=== PATIENT | female | born 1995 | race Caucasian/White ===

== ENCOUNTER 2016-10-18 15:00 | Inpatient (IN) | payer OTHER ==
--- NOTE | ~2016-10-18 | PN ---
Unit #: [id number] #: [id number] Patient: CLARISA COLLINS [id number] [facility] [address] [place] [address] [id number] I MR#: [id number] NAME: CLARISA COLLINS. ROOM: P123 Age: 21 Sex: F Admission Date: 10/19/2016 : 1995 Attending Physician: Arsalan Nicholas M.D. Admitting Physician: Arsalan Nicholas M.D. Primary Care Physician: Primary Care Physician Erika LOPEZ PROGRESS NOTES DATE October 28, 2016 DISCUSSION Ms. Nazario is a 21-year-old white female, who was seen today and chart was reviewed and the case was discussed with the staff. She has been anxious, withdrawn, and rather seclusive to herself. Meanwhile, she has been cooperative with the treatment recommendations and she has been taking the medications and tolerating them fairly well. MENTAL STATUS EXAMINATION Young white female, who was casually dressed with fair personal hygiene and appears to be in no acute distress or discomfort. She was awake and alert with impaired attention and concentration. Her mood is anxious with a congruent affect. The patient denies any suicidal or homicidal ideations. Her thought processes are disorganized with some looseness of associations, paranoid ideations. Her insight and judgment remain significantly impaired. The patient had another violent outburst last night with acute psychosis and agitation and some violent behavior, and was put in seclusion; however, she was banging her head against the wall and running through the halls and extremely out if and heart rate and blood pressure and an intramuscular injection of Ativan was given, and she was placed on one-to-one precaution for safety purposes. TREATMENT PLAN I will recommend adjusting her medications and we will monitor her response. Dictated by... Jalil Botello/hay TD: 10/28/2016 11:50 JOB #: [id number] Unit #: [id number] #: [id number] Patient: CLARISA COLLINS PEAANA PROGRESS NOTES Page 1 of 1 X CristopherArsalan Choe MD X PROGRESS NOTE
--- NOTE | ~2016-10-18 | PN ---
Unit #: [id number] #: [id number] Patient: CLARISA COLLINS [id number] [facility] [address] [place] [address] [id number] MR#: [id number] NAME: CLARISA COLLINS. ROOM: P123 Age: 21 Sex: F Admission Date: 10/19/2016 : 1995 Attending Physician: Arsalan Nicholas M.D. Admitting Physician: Arsalan Nicholas M.D. Primary Care Physician: Primary Care Physician Erika LOPEZ PROGRESS NOTES DATE October 31, 2016 DISCUSSION Ms. Collins is a 21-year-old white female, who was seen today and chart was reviewed and the case was discussed with the staff. She appears to be doing much better and has been showing significant complaining, confusion, and psychosis, and no agitation or aggression or self-harming behavior has been reported. She was taken off of the one-to-one level of precaution yesterday and so far she has not shown any decompensation and social insurance specialist has been directed to stop working on discharge planning. MENTAL STATUS EXAMINATION Young white female, who was casually dressed with fair personal hygiene and appears to be in no acute distress or discomfort. The patient was awake and alert on interaction with intact orientation. Her mood is anxious with a congruent affect. The patient denies any suicidal or homicidal ideations. Her insight and judgment remain slightly impaired. TREATMENT PLAN 1. We will continue her on her current medications and treatment protocol, and will monitor her response to the medications, and make further adjustments as needed. 2. We will continue to followup. Dictated by... Jalil Botello/hay TD: 10/31/2016 12:19 JOB #: [id number] Unit #: [id number] #: [id number] Patient: CLARISA COLLINS JESSICA PROGRESS NOTES Page 1 of 1 X Arsalan Nicholas MD PROGRESS NOTE
--- NOTE | ~2016-10-18 | PN ---
Unit #: [id number] #: [id number] Patient: CLARISA COLLINS [id number] [facility] [address] [place] [address] [id number] MR#: [id number] NAME: CLARISA COLLINS. ROOM: P123 Age: 21 Sex: F Admission Date: 10/19/2016 : 1995 Attending Physician: Arsalan Nicholas M.D. Admitting Physician: Arsalan Nicholas M.D. Primary Care Physician: Primary Care Physician Erika LAMBERT NOTES DATE OF SERVICE: 10/29/2016 SUBJECTIVE Ms. Collins is a 21-year-old white female, who was seen today and chart was reviewed, and case was discussed with the staff. She has been anxious, withdrawn, agitated, irritable and has not been doing good and once again had very rough evening, has been on one-to-one, but apparently she broke out of her one-to-one staff and started running down the hallway and going at the door and bumped straight into the door without putting the hand out. She then started running again and fell down and scraped her knees and tore her paper gowns and has been seen to be exhibiting some increasing anxiety, agitation, psychosis, with bizarre behavior and has been needing p.r.n. medications to cut down and has not been doing good and when approached, once again she was on one-to-one, but was seen to be lying flat in her bed with poor ability to make eye contact or carry on any meaningful conversation and was exhibiting bizarre behavior, and as such, remains a significant threat to herself. We will maintain her on current level of precautions. We will monitor her medications and adjust further and continue to monitor response. Dictated by... Jalil Botello/akila TD: 10/30/2016 00:18 JOB #: [id number] JESSICA LAMBERT NOTES Page 1 of 1 X Arsalan Nicholas MD PROGRESS NOTE
--- NOTE | ~2016-10-18 | PN ---
Unit #: [id number] #: [id number] Patient: CLARISA COLLINS [id number] [facility] [address] [place] [address] [id number] I MR#: [id number] NAME: CLARISA COLLINS. ROOM: P123 Age: 21 Sex: F Admission Date: 10/19/2016 : 1995 Attending Physician: Arsalan Nicholas M.D. Admitting Physician: Arsalan Nicholas M.D. Primary Care Physician: Primary Care Physician Erika LOPEZ PROGRESS NOTES DATE 10/22/2016 DISCUSSION Mr. Collins is a 21-year-old white female who was seen today and chart was reviewed and case was discussed with the staff. She has been anxious, withdrawn and rather seclusive to herself. Meanwhile, she has been cooperative with treatment recommendations and has been taking medications and tolerating them fairly well with no reported side effects. MENTAL STATUS EXAMINATION Young white female who was casually dressed with fair personal hygiene and appears to be in no acute distress or discomfort. She was awake and alert with impaired attention and concentration. Her mood was anxious and depressed with blunted affect. Her speech is slow and restricted in content. Her thought processes were disorganized with some looseness of association, thought blocking and paranoid ideations. Her insight and judgement remains significantly impaired. TREATMENT PLAN 1. Will continue on current treatment protocol. Will monitor her response and make further adjustments as needed. 2. Will continue to follow up. Dictated by... Jalil Botello/ascencion TD: 10/23/2016 17:51 JOB #: [id number] Unit #: [id number] #: [id number] Patient: CLARISA COLLINS JESSICA PROGRESS NOTES Page 1 of 1 X Arsalan Nicholas MD PROGRESS NOTE
--- NOTE | ~2016-10-18 | PN ---
Unit #: [id number] #: [id number] Patient: CLARISA COLLINS [id number] [facility] [address] [place] [address] [id number] I MR#: [id number] NAME: CLARISA COLLINS. ROOM: P123 Age: 21 Sex: F Admission Date: 10/19/2016 : 1995 Attending Physician: Arsalan Nicholas M.D. Admitting Physician: Arsalan Nicholas M.D. Primary Care Physician: Primary Care Physician Erika LOPEZ PROGRESS NOTES DATE 10/25/2016 DISCUSSION Ms. Collins is a 21-year-old white female who was seen today and chart was reviewed and case was discussed with the staff. She has been anxious, withdrawn though has not shown any agitation, irritability and remains seclusive to herself with blunted affect and minimal interaction and poorly compliant with the treatment recommendations. MENTAL STATUS EXAMINATION Young white female who was casually dressed with fair personal hygiene and appears to be in no acute distress or discomfort. She was awake and alert with impaired attention and concentration. Her mood was anxious with congruent affect. She denies any suicidal or homicidal ideation. Her insight and judgement remains slightly impaired. TREATMENT PLAN 1. Will continue on current medications and treatment protocol. Will monitor her response to the medications and make further adjustments as needed. 2. Will continue to follow up. Dictated by... Jalil Botello/ascencion TD: 10/25/2016 16:57 JOB #: [id number] Unit #: [id number] #: [id number] Patient: CLARISA COLLINSANA PROGRESS NOTES Page 1 of 1 X Arsalan Nicholas MD X PROGRESS NOTE
--- NOTE | ~2016-10-18 | PN ---
Unit #: [id number] #: [id number] Patient: CLARISA COLLINS [id number] [facility] [address] [place] [address] [id number] I MR#: [id number] NAME: CLARISA COLLINS. ROOM: P123 Age: 21 Sex: F Admission Date: 10/19/2016 : 1995 Attending Physician: Arsalan Nicholas M.D. Admitting Physician: Arsalan Nicholas M.D. Primary Care Physician: Primary Care Physician Erika LAMBERT NOTES DATE 10/26/2016 DISCUSSION Ms. Collins is a 21-year-old white female with mood disorder and psychosis who was seen today and chart was reviewed and case was discussed with the staff. She has come out of being in a vegetative state of being in an agitated and aggressive state and staff called me stating that patient has been running around and has been going into other patient's room and touching their things and refusing to follow redirection, a lot of chaos and stressors and on approach, the patient was pacing the hallways and mumbling and calling names and saying that she is a squirrel and she is going to kill herself. Staff are constantly following her around and she is not following any directions and seemed to be exhibiting acute psychosis, agitation and aggression and irritability. I did recommend giving her injection Geodon 20 mg intramuscular however even that did not work and several minutes later, she was still not any better and causing a lot of disturbance on the unit and therefore it was decided an intramuscular injection of Ativan 2 mg would be given agitation and aggression. We will monitor her response and make further adjustments as needed . Dictated by... Jalil Botello/cherry TD: 10/27/2016 03:18 JOB #: [id number] JESSICA LAMBERT NOTES Page 1 of 1 X Arsalan Nicholas MD PROGRESS NOTE
--- NOTE | ~2016-10-18 | PN ---
Unit #: [id number] #: [id number] Patient: CLARISA COLLINS [id number] [facility] [address] [place] [address] [id number] I MR#: [id number] NAME: CLARISA COLLINS. ROOM: P123 Age: 21 Sex: F Admission Date: 10/19/2016 : 1995 Attending Physician: Arsalan Nicholas M.D. Admitting Physician: Arsalan Nicohlas M.D. Primary Care Physician: Primary Care Physician Erika LOPEZ PROGRESS NOTES DATE 10/24/2016 DISCUSSION Ms. Collins is a 21-year-old white female with mood disorder and psychosis who was seen today and chart was reviewed and case was discussed with the staff. She remains anxious, withdrawn, depressed and seclusive to herself with blunted affect and bizarre behavior and has been compliant with medication. MENTAL STATUS EXAMINATION Young white female who was casually dressed with fair personal hygiene and appears to be in no acute distress or discomfort. She was awake and alert with impaired attention and concentration. Mood was anxious and depressed with congruent affect. Her speech is slow and restricted in content. Her thought processes were disorganized with some looseness of associations and thought blocking and paranoid ideations. Her insight and judgement remain . TREATMENT PLAN 1. Will continue on current medications and treatment protocol. Will monitor her response to the medications and make further adjustments as needed. 2. Will continue to follow up. Dictated by... Jalil Botello/ascencion TD: 10/24/2016 22:36 JOB #: [id number] Unit #: [id number] #: [id number] Patient: CLARISA COLLINS PROGRESS NOTES Page 1 of 1 X Arsalan Nicholas MD PROGRESS NOTE
--- NOTE | ~2016-10-18 | PN ---
Unit #: [id number] #: [id number] Patient: CLARISA COLLINS [id number] [facility] [address] [place] [address] [id number] I MR#: [id number] NAME: CLARISA COLLINS. ROOM: P123 Age: 21 Sex: F Admission Date: 10/19/2016 : 1995 Attending Physician: Arsalan Nicholas M.D. Admitting Physician: Arsalan Nicholas M.D. Primary Care Physician: Primary Care Physician Erika LAMBERT NOTES DATE OF SERVICE: 10/21/2016 SUBJECTIVE Ms. Collins is a 21-year-old white female who was seen today and chart was reviewed and case was discussed with the staff. She has been anxious, withdrawn, and rather seclusive to herself, but does appear to be doing better than yesterday and was able to make eye contact and carry on a brief conversation, though appears to be disorganized, unkempt, disheveled, and rather seclusive to herself with blunted affect, persistent depression, and underlying psychosis, but she has been taking the medications and tolerating them fairly well with no reported side effects. MENTAL STATUS EXAMINATION Young white female who was casually dressed with fair personal hygiene, appears to be in no acute distress or discomfort. She was awake and alert with impaired attention and concentration. Her mood was anxious with a congruent affect. Her speech was slow and restricted in content. Her thought processes were disorganized with some looseness of associations, paranoid ideations, and thought blocking. Her insight and judgment remain significantly impaired. TREATMENT PLAN 1. We will continue her on her current medications and treatment protocol. We will monitor her response to the medications and make further adjustments as needed. 2. We will continue to follow up. Dictated by... Jalil Botello/akila TD: 10/22/2016 00:33 JOB #: [id number] Unit #: [id number] #: [id number] Patient: CLARISA COLLINS JESSICA PROGRESS NOTES Page 1 of 1 X Cristopher,Arsalan Choe MD X PROGRESS NOTE
--- NOTE | ~2016-10-18 | PN ---
Unit #: [id number] #: [id number] Patient: CLARISA COLLINS [id number] [facility] [address] [place] [address] [id number] I MR#: [id number] NAME: CLARISA COLLINS. ROOM: P123 Age: 21 Sex: F Admission Date: 10/19/2016 : 1995 Attending Physician: Arsalan Nicholas M.D. Admitting Physician: Arsalan Nicholas M.D. Primary Care Physician: Primary Care Physician Erika LAMBERT NOTES DATE 10/20/2016 DISCUSSION Ms. Collins is a 21-year-old white female with mood disorder and psychosis who was seen today and chart was reviewed and case was discussed with the staff who reports the patient has not been doing good and yesterday she had episode of agitation and aggression. She started ripping her clothes off and started yelling and screaming and she ran down the hallway and she just dropped herself down on the floor. She was then able to calm herself down and go to her room. However, this morning she has been sleeping into a ____ phase as she has crumbled and smooshed all her food and throwing it on the floor and staff were trying to clean it up. Meanwhile, the patient was laying in the floor and me and nursing staff trying to communicate with her as she had her eyes open and she will not blink and she would not answer any questions and staff report that she has not been talking very much and we even waved our hand in front her eyes and she still would not respond or blink her eyes and would not move and has been in one posture and appears to be going into a catatonic phase. We will continue to monitor her response to the medications and treatment interventions. We will make further adjustments as needed. Dictated by... Jalil Botello/cherry TD: 10/23/2016 00:55 JOB #: [id number] JESSICA LAMBERT NOTES Page 1 of 1 X Arsalan Nicholas MD PROGRESS NOTE
--- NOTE | ~2016-10-18 | PN ---
Unit #: [id number] #: [id number] Patient: CLARISA COLLINS [id number] [facility] [address] [place] [address] [id number] MR#: [id number] NAME: CLARISA COLLINS. ROOM: P123 Age: 21 Sex: F Admission Date: 10/19/2016 : 1995 Attending Physician: Arsalan Nicholas M.D. Admitting Physician: Arsalan Nicholas M.D. Primary Care Physician: Primary Care Physician Erika LAMBERT NOTES DATE 10/30/2016 SUBJECTIVE The patient is a 21-year-old white female, who was seen today, chart was reviewed, case was discussed with staff. She appears to be doing much better and meeting today. Meanwhile, she has been taking the medications and tolerating them fairly well. MENTAL STATUS EXAMINATION Young white female who was casually dressed with fair personal hygiene, appears to be in no acute distress or discomfort. She was awake and alert with impaired attention and concentration. Her mood was anxious and depressed with a congruent affect. Her speech was slow and restricted in content. She denies any suicidal ideation and also denies any auditory or visual hallucinations. Her insight and judgment remain slightly impaired. TREATMENT PLAN 1. We will continue on current medications and treatment protocol. We will monitor her response to medications and make further adjustments as needed. 2. We will continue to follow up. Dictated by... Jalil Botello/akila TD: 10/30/2016 19:32 JOB #: [id number] JESSICA PROGRESS NOTES Page 1 of 1 X Arsalan Nicholas MD X PROGRESS NOTE
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
--- NOTE | ~2016-10-18 | PN ---
Unit #: [id number] #: [id number] Patient: CLARISA COLLINS [id number] [facility] [address] [place] [address] [id number] I MR#: [id number] NAME: CLARISA COLLINS. ROOM: P123 Age: 21 Sex: F Admission Date: 10/19/2016 : 1995 Attending Physician: Arsalan Nicholas M.D. Admitting Physician: Arsalan Nicholas M.D. Primary Care Physician: Primary Care Physician Erika LAMBERT NOTES DATE 10/23/2016 DISCUSSION Ms. Collins is a 21-year-old white female who was seen today and chart was reviewed and case was discussed with the staff. She remains anxious, withdrawn, disorganized and a very bizarre situation as she has been seclusive and isolative and does not intact or socialize and once again when I approached her, she was laying on her bed with her belly on the bed and was seen to be dressed in paper gowns and when asked how she was doing, she was awake and alert and looked at me but then she was unable to answer any questions and just kept staring and then she started smacking her bed and punching her pillow and once again was unable to be reached (2) conversation and has been exhibiting disorganized thoughts, speech and behavior with acute psychosis and depressive phase. Staff reports the patient has not been able to perform activities of daily living and has not been reaching out socializing and interacting or participating in therapy groups and will at this point maintain on current level of precaution and monitor her response to treatment interventions and we will make further adjustments as needed. Dictated by... Jalil Botello/cherry TD: 10/24/2016 02:06 JOB #: [id number] JESSICA LAMBERT NOTES Page 1 of 1 X Arsalan Nicholas MD PROGRESS NOTE
--- NOTE | ~2016-10-18 | HP ---
Unit #: [id number] #: [id number] Patient: NELL COLLINS [id number] [place] [address] [id number] I MR#: [id number] NAME: NELL COLLINS. ROOM: P123 Age: 21 Sex: F Admission Date: 10/19/2016 : 1995 Attending Physician: Arsalan Nicholas M.D. Admitting Physician: Arsalan Nicholas M.D. Primary Care Physician: Primary Care Physician No HISTORY AND PHYSICAL HISTORY OF PRESENT ILLNESS Nell is a 21-year-old female admitted on 10/19/[address] [place] [address] for psychosis. During the evaluation, she was unable to answer any questions appropriately. She stared at the wall and did not participate in the evaluation. Therefore, all information is taken from medical records. PAST MEDICAL HISTORY 1. Obesity. 2. Asthma. PAST SURGICAL HISTORY None documented. SOCIAL HISTORY Per records, she is single and living with her boyfriend and his family. She is currently unemployed. She denies tobacco or illegal drug use and does have an occasion use of alcohol. REVIEW OF SYSTEMS Patient refusing to answer any questions. Does not appear to be in any acute distress. PHYSICAL EXAMINATION GENERAL: Patient is refusing to consent for physical exam and does appear to be uncomfortable with assessment of even heart and lungs. Therefore, at this time it is deferred. She does not appear to be in any acute distress. Alert, disoriented and unresponsive to questions. VITAL SIGNS: Blood pressure 122/75, heart rate 140, respirations 18, temperature 99.2. HEIGHT: 5 feet 3. WEIGHT: 251 pounds. IMPRESSION 1. Psychiatric admission. 2. Obesity. 3. Asthma. RECOMMENDATIONS PSYCHIATRIC: Per psychiatrist. MEDICAL: No contraindications to participate in facility's activities. MEDICAL PROGNOSIS Unit #: [id number] #: [id number] Patient: NELL COLLINS Good. MEDICAL CONDITION Stable. Dictated by.Nitesh Alvarenga/ascencion TD: 10/19/2016 18:43 JOB #: [id number] HISTORY AND PHYSICAL Page 1 of 1 X SALTY MILLAN APRN X HISTORY AND PHYSICAL
--- NOTE | ~2016-10-18 | PN ---
Unit #: [id number] #: [id number] Patient: CLARISA COLLINS [id number] [facility] [address] [place] [address] [id number] I MR#: [id number] NAME: CLARISA COLLINS. ROOM: P123 Age: 21 Sex: F Admission Date: 10/19/2016 : 1995 Attending Physician: Arsalan Nicholas M.D. Admitting Physician: Arsalan Nicholas M.D. Primary Care Physician: Primary Care Physician Erika LOPEZ PROGRESS NOTES DATE 10/27/2016 DISCUSSION Ms. Collins is a 21-year-old white female who was seen today and chart was reviewed and case was discussed with the staff. She has been anxious, withdrawn and rather seclusive to herself. Meanwhile, she has been cooperative with treatment recommendations has been taking the medications and tolerating them fairly well with no reported side effects. MENTAL STATUS EXAMINATION Young white female who was casually dressed with fair personal hygiene, appears to be in no acute distress or discomfort. She was awake and alert on interaction with intact orientation. Her mood was anxious with congruent affect. She denies any suicidal or homicidal ideations. Her insight and judgement remains slightly impaired. TREATMENT PLAN 1. We will continue her on her current medications and treatment protocol. We will monitor her response and make further adjustments as needed. 2. We will continue to follow up. Dictated by... Jalil Botello/cherry TD: 10/27/2016 23:24 JOB #: [id number] Unit #: [id number] #: [id number] Patient: CLARISA COLLINS JESSICA PROGRESS NOTES Page 1 of 1 X Arsalan Nicholas MD PROGRESS NOTE
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
[2016-10-21 09:39] LABS: BASOPHIL# 0.1 X10e3 (0-0.3); BASOPHIL% 1.2 % (0-2.5); EOSINOPHIL# 0.2 X10e3 (0-0.7); EOSINOPHIL% 2.6 % (0.0-7.0); HEMATOCRIT 38.2 % (35.0-45.0); HEMOGLOBIN 12.7 gm/dL (12.0-16.0); LYMPHOCYTE# 2.4 X10e3 (1.0-3.5); LYMPHOCYTE% 25.5 % (17.0-45.0); MEAN CELL VOLUME 88.7 FL (83-96); MEAN CORPUSCULAR HEMOGLOBIN 29.4 PG (28-34); MEAN CORPUSCULAR HGB CONC 33.1 g/dL (30-36); MONOCYTE# 0.6 X10e3 (0-1.0); MONOCYTE% 6.5 % (3.0-12.0); NEUTROPHIL% 64.2 % (40-75); PLATELET COUNT 307 X10e3 (140-420); RED BLOOD COUNT 4.31 X10e (3.90-5.30); RED CELL DISTRIBUTION WIDTH 13.4 % (11.0-15.5); WHITE BLOOD COUNT 9.4 X10e3 (4.0-10.5)
[2016-10-21 09:48] LABS: DIFF IND NO
[2016-10-21 10:03] LABS: THYROID STIMULATING HORMONE 2.98 uIU/ml (0.34-5.60)
[2016-10-21 10:10] LABS: FREE THYROXIN (T4) 0.82 ng/dL (0.58-1.64)
[2016-10-21 10:15] LABS: ALBUMIN SERUM 4.5 g/dL (3.5-5.0); BILIRUBIN,TOTAL 0.6 mg/dL (0.2-2.0); CALCIUM SERUM 9.6 mg/dL (8.4-10.2); CREATININE SERUM 0.7 mg/dL (0.6-1.4); GLOM FILT RATE Estimated 123.9 mL/min (>60); PROTEIN TOTAL SERUM 7.5 g/dL (6.0-8.3)
== END 2016-11-01 12:55 | disposition home or self-care (01) | DRG 885 ==
LOC: P2L 15:00 → P1S 10-19 03:15
PROVIDERS: Psychiatry & Neurology Psychiatry
DX: F33.1 Major depressive disorder, recurrent, moderate (principal); Z68.41 Body mass index [BMI] 40.0-44.9, adult; E66.9 Obesity, unspecified; J45.909 Unspecified asthma, uncomplicated
CPT/HCPCS: 80053; 84439; 84443; 84703; 85025; 86592; J2060; J3486